=== PATIENT | male | born 1955 | race Two or more races ===

== ENCOUNTER 2022-09-18 10:24 | Outpatient (CLI) | payer MEDICARE, OTHER | END 2022-09-18 23:59 | disposition home or self-care (01) | LOC: RAD 10:24 | PROVIDERS: ATTEND Internal Medicine | DX: M16.0 Bilateral primary osteoarthritis of hip (principal); M25.852 Other specified joint disorders, left hip; M25.551 Pain in right hip; M25.552 Pain in left hip; M25.752 Osteophyte, left hip | CPT/HCPCS: 73521 ==

== ENCOUNTER 2022-10-17 09:27 | Outpatient (CLI) | payer MEDICARE, OTHER ==
[2022-10-17 10:26] LABS: APPEARANCE,URINE CLEAR (CLEAR); BILIRUBIN,URINE NEGATIVE (NEGATIVE); BLOOD, URINE NEGATIVE Ery/uL (NEGATIVE); COLOR,URINE YELLOW (YELLOW); KETONES,URINE NEGATIVE (NEGATIVE); LEUKOCYTE ESTERASE ,URINE NEGATIVE (NEGATIVE); NITRITE, URINE NEGATIVE (NEGATIVE); PH,URINE 5.5 (5.0-8.0); PROTEIN,URINE NEGATIVE (NEGATIVE); UGLUCOSE NEGATIVE (NEGATIVE); UROBILINOGEN,URINE 0.2 EU/dL (0.2)
[2022-10-17 10:29] LABS: BASOPHILS % (AUTO) 0.6 % (0.0-2.0); EOSINOPHILS # (AUTO) 0.1 K/uL (0.0-0.7); HEMATOCRIT 35 % (39-51); LYMPHOCYTES # (AUTO) 1.6 K/uL (0.8-4.8); LYMPHOCYTES % (AUTO) 26.8 % (20.0-44.0); MEAN CORPUSCULAR HEMOGLOBIN 31 PG (26.0-33.0); MEAN CORPUSCULAR HGB CONC 35 g/dl (31.0-36.0); MEAN CORPUSCULAR VOLUME 90 fL (80-96); MONOCYTES # (AUTO) 0.5 K/uL (0.1-1.30); MONOCYTES % (AUTO) 7.7 % (2.0-12.0); NEUTROPHILS # (AUTO) 3.8 K/uL (1.8-8.9); NEUTROPHILS % (AUTO) 63.9 % (43.0-81.0); PLATELET COUNT (AUTO) 280 K/uL (150-450); RED BLOOD CELL COUNT(AUTO) 3.87 MIL/uL (4.5-6.0); RED CELL DISTRIBUTION WIDTH 12.5 % (11.5-15.0)
[2022-10-17 10:36] LABS: INR 0.98 (0.91-1.10); PARTIAL THROMBOPLASTIN TIME 26.5 SEC (24.3-34.3); PROTHROMBIN TIME 10.3 SECS (9.2-11.1)
[2022-10-17 10:49] LABS: ALBUMIN 3.9 g/dL (3.4-5.0); BILIRUBIN,TOTAL 0.7 mg/dL (0.2-1.0); CALCIUM, SERUM 9.4 mg/dL (8.5-10.1); CREATININE 0.9 mg/dL (0.6-1.3)
[2022-11-02] MEDS ORDERED: HYDR-3980 PO (14:11)
[2022-11-02] MEDS ORDERED: Hydrocodone/Apap 5/325MG PO (14:11)
== END 2022-10-17 23:59 | disposition home or self-care (01) ==
LOC: LAB 09:27
PROVIDERS: ATTEND Internal Medicine
DX: Z01.818 Encounter for other preprocedural examination (principal); E11.9 Type 2 diabetes mellitus without complications
CPT/HCPCS: 36415; 71045-TC; 80053-TC; 85025-TC; 85730-TC

== ENCOUNTER 2022-10-22 10:13 | Outpatient (CLI) | payer MEDICARE, OTHER | END 2022-10-22 23:59 | disposition home or self-care (01) | LOC: MSC 10:13 | PROVIDERS: ATTEND Internal Medicine | DX: Z01.818 Encounter for other preprocedural examination (principal); M16.9 Osteoarthritis of hip, unspecified; Z87.39 Personal history of other diseases of the musculoskeletal system and connective tissue; I10 Essential (primary) hypertension; M54.30 Sciatica, unspecified side; Z79.891 Long term (current) use of opiate analgesic; E11.9 Type 2 diabetes mellitus without complications; Z79.84 Long term (current) use of oral hypoglycemic drugs; E78.5 Hyperlipidemia, unspecified; F41.9 Anxiety disorder, unspecified; Z79.899 Other long term (current) drug therapy ==

== ENCOUNTER 2022-10-30 14:40 | Inpatient (IN) | payer MEDICARE, OTHER ==
[~2022-10-30] VITALS: Ht 167.6 cm; Wt 80.3 kg
[2022-10-30] MEDS ORDERED: METF-440 PO (15:31)
[2022-10-30] MEDS ORDERED: OMEP40CA21 PO (15:31)
[2022-10-30] MEDS ORDERED: HYDR-3980 PO (15:31)
[2022-10-30] MEDS ORDERED: IBUP-1955 PO (15:31)
[2022-10-30] MEDS ORDERED: ALPR0.255 PO (15:31)
[2022-10-30] MEDS ORDERED: CARI350T27 PO (15:31)
[2022-10-30] MEDS ORDERED: CELE200C PO (15:31)
[2022-10-30] MEDS ORDERED: ONDA4TAB5 PO (15:31)
[2022-10-30] MEDS ORDERED: LOSA25TA27 PO (15:31)
[2022-10-30] MEDS ORDERED: MORPHINE SULFATE INJ 4 MG/ML DISP.SYRIN ONE (16:59)
[2022-10-30] MEDS ORDERED: MORPHINE SULFATE INJ 2 MG/ML DISP.SYRIN IV ONE (17:00)
[2022-10-30 17:02] LABS: BASOPHILS % (AUTO) 0.3 % (0.0-2.0); EOSINOPHILS # (AUTO) 0.1 K/uL (0.0-0.7); EOSINOPHILS % (AUTO) 1.6 % (0.0-6.0); HEMATOCRIT 31 % (39-51); HEMOGLOBIN 10.3 g/dL (13.5-17.5); LYMPHOCYTES # (AUTO) 1.3 K/uL (0.8-4.8); LYMPHOCYTES % (AUTO) 15.3 % (20.0-44.0); MEAN CORPUSCULAR HEMOGLOBIN 31 PG (26.0-33.0); MEAN CORPUSCULAR HGB CONC 33 g/dl (31.0-36.0); MEAN CORPUSCULAR VOLUME 92 fL (80-96); MONOCYTES # (AUTO) 1.1 K/uL (0.1-1.30); MONOCYTES % (AUTO) 12.9 % (2.0-12.0); NEUTROPHILS # (AUTO) 5.8 K/uL (1.8-8.9); NEUTROPHILS % (AUTO) 69.9 % (43.0-81.0); PLATELET COUNT (AUTO) 233 K/uL (150-450); RED BLOOD CELL COUNT(AUTO) 3.35 MIL/uL (4.5-6.0); RED CELL DISTRIBUTION WIDTH 12.4 % (11.5-15.0); WHITE BLOOD COUNT (AUTO) 8.3 K/uL (4.3-11.0)
[2022-10-30 17:14] LABS: INR 0.99 (0.91-1.10); PARTIAL THROMBOPLASTIN TIME 28.9 SEC (24.3-34.3); PROTHROMBIN TIME 10.4 SECS (9.2-11.1)
[2022-10-30 17:39] LABS: POTASSIUM 3.7 mmol/L (3.5-5.1)
[2022-10-30 17:52] LABS: CALCIUM, SERUM 8.8 mg/dL (8.5-10.1)
[2022-10-30 18:20] VITALS: BP 128/74; TEMP 98.8; O2SAT 97
[2022-10-30] MEDS ORDERED: Medication Not On Formulary EA (Ondansetron Hcl (Zofran) 4 MG) PO PRN (19:00)
[2022-10-30] MEDS ORDERED: Z GUARD REMEDY 4 OZ OINT TP PRN (19:00)
[2022-10-30] MEDS ORDERED: KETOROLAC TROMETHAMINE INJ 30 MG/ML VIAL IM PRN (19:00)
[2022-10-30] MEDS ORDERED: CARISOPRODOL 350 MG TABLET PO PRN (19:00)
[2022-10-30] MEDS ORDERED: ONDANSETRON HCL/PF 4 MG/2 ML VIAL IVP PRN (19:00)
[2022-10-30] MEDS ORDERED: ALPRAZOLAM 0.25 MG TABLET PO PRN (19:00)
[2022-10-30] MEDS ORDERED: ACETAMINOPHEN 325 MG TABLET PO PRN (19:00)
[2022-10-30] MEDS ORDERED: MAGNESIUM HYDROXIDE 30 ML UDC PO PRN (19:00)
[2022-10-30] MEDS ORDERED: MAG HYDROX/AL HYDROX/SIMETH 30 ML UDC PO PRN (19:00)
[2022-10-30] MEDS ORDERED: IBUPROFEN 600 MG TABLET PO PRN (19:00)
[2022-10-30] MEDS ORDERED: CELECOXIB 100 MG CAPSULE PO PRN (19:30)
[2022-10-30] MEDS ORDERED: DEXTROSE 50%-WATER 50 ML DISP.SYRIN IV PRN (19:30)
[2022-10-30] MEDS: ENOXAPARIN SODIUM 40 MG/0.4 ML DISP.SYRIN SQ SCH (19:58)
[2022-10-30 20:00] VITALS: BP 129/76; TEMP 98.6; O2SAT 97
[2022-10-30] MEDS: HYDROCODONE/APAP 10/325MG TABLET PO PRN (20:06)
[2022-10-30] MEDS: BLOOD SUGAR DIAGNOSTIC 1 EACH STRIP VI SCH (22:01)
[2022-10-30] MEDS: *INSULIN REGULAR(HUMULIN R)HUM 100 UNIT/ML VIAL SQ PRN (22:01)
[2022-10-31] MEDS: MORPHINE SULFATE INJ 2 MG/ML DISP.SYRIN IV PRN (02:53)
[2022-10-31 06:26] LABS: BASOPHILS % (AUTO) 0.5 % (0.0-2.0); EOSINOPHILS # (AUTO) 0.3 K/uL (0.0-0.7); EOSINOPHILS % (AUTO) 4.3 % (0.0-6.0); HEMATOCRIT 28 % (39-51); HEMOGLOBIN 9.4 g/dL (13.5-17.5); LYMPHOCYTES # (AUTO) 1.6 K/uL (0.8-4.8); LYMPHOCYTES % (AUTO) 23.7 % (20.0-44.0); MEAN CORPUSCULAR HEMOGLOBIN 31 PG (26.0-33.0); MEAN CORPUSCULAR HGB CONC 33 g/dl (31.0-36.0); MEAN CORPUSCULAR VOLUME 93 fL (80-96); MONOCYTES # (AUTO) 0.7 K/uL (0.1-1.30); MONOCYTES % (AUTO) 10.5 % (2.0-12.0); NEUTROPHILS # (AUTO) 4.2 K/uL (1.8-8.9); PLATELET COUNT (AUTO) 207 K/uL (150-450); RED BLOOD CELL COUNT(AUTO) 3.04 MIL/uL (4.5-6.0); RED CELL DISTRIBUTION WIDTH 12.3 % (11.5-15.0); WHITE BLOOD COUNT (AUTO) 6.9 K/uL (4.3-11.0)
[2022-10-31] MEDS: BLOOD SUGAR DIAGNOSTIC 1 EACH STRIP VI SCH ×4 (06:32→21:29)
[2022-10-31] MEDS: INSULIN REGULAR, HUMAN 100 UNIT/ML 3 ML VIAL SQ PRN ×2 (06:32→12:03)
[2022-10-31 07:03] LABS: CALCIUM, SERUM 8.6 mg/dL (8.5-10.1); CREATININE 1.1 mg/dL (0.6-1.3); MAGNESIUM 2.1 mg/dL (1.8-2.4); PHOSPHORUS 4.2 mg/dL (2.5-4.9); POTASSIUM 3.9 mmol/L (3.5-5.1)
[2022-10-31] MEDS: LOSARTAN POTASSIUM 25 MG TABLET PO SCH (08:28)
[2022-10-31] MEDS: PANTOPRAZOLE 40 MG TABLET.DR PO SCH (08:28)
[2022-10-31 09:00] VITALS: BP 125/74; TEMP 98.2; O2SAT 97
[2022-10-31] MEDS ORDERED: HYDROCODONE/APAP 10/325MG TABLET PO SCH (09:00)
[2022-10-31] MEDS: HYDROCODONE/APAP 10/325MG TABLET PO PRN (11:53)
[2022-10-31 16:00] VITALS: BP 129/79; TEMP 98.2; O2SAT 96
[2022-10-31] MEDS: METFORMIN 500 MG TABLET PO SCH (17:33)
[2022-10-31] MEDS: ENOXAPARIN SODIUM 40 MG/0.4 ML DISP.SYRIN SQ SCH (18:40)
[2022-10-31 19:00] VITALS: BP 130/83; TEMP 98.1; O2SAT 96
[2022-10-31 20:00] VITALS: BP 130/83; TEMP 98.1; O2SAT 96
[2022-10-31] MEDS: *INSULIN REGULAR(HUMULIN R)HUM 100 UNIT/ML VIAL SQ PRN (21:29)
[2022-10-31] MEDS: HYDROCODONE/APAP 5/325MG TABLET PO PRN (21:51)
[2022-11-01 01:25] VITALS: BP 129/70
[2022-11-01] MEDS: ZOLPIDEM TARTRATE 5 MG TABLET PO PRN ×2 (01:31→23:33)
[2022-11-01] MEDS: BLOOD SUGAR DIAGNOSTIC 1 EACH STRIP VI SCH ×4 (06:35→22:21)
[2022-11-01] MEDS: INSULIN REGULAR, HUMAN 100 UNIT/ML 3 ML VIAL SQ PRN ×3 (06:35→17:10)
[2022-11-01 07:33] LABS: BASOPHILS % (AUTO) 0.4 % (0.0-2.0); EOSINOPHILS # (AUTO) 0.4 K/uL (0.0-0.7); EOSINOPHILS % (AUTO) 4.7 % (0.0-6.0); HEMATOCRIT 28 % (39-51); HEMOGLOBIN 9.3 g/dL (13.5-17.5); LYMPHOCYTES # (AUTO) 1.5 K/uL (0.8-4.8); LYMPHOCYTES % (AUTO) 20.4 % (20.0-44.0); MEAN CORPUSCULAR HEMOGLOBIN 31 PG (26.0-33.0); MEAN CORPUSCULAR HGB CONC 33 g/dl (31.0-36.0); MEAN CORPUSCULAR VOLUME 92 fL (80-96); MONOCYTES # (AUTO) 0.6 K/uL (0.1-1.30); MONOCYTES % (AUTO) 8.6 % (2.0-12.0); NEUTROPHILS # (AUTO) 4.9 K/uL (1.8-8.9); NEUTROPHILS % (AUTO) 65.9 % (43.0-81.0); PLATELET COUNT (AUTO) 251 K/uL (150-450); RED BLOOD CELL COUNT(AUTO) 3.03 MIL/uL (4.5-6.0); RED CELL DISTRIBUTION WIDTH 12.2 % (11.5-15.0); WHITE BLOOD COUNT (AUTO) 7.5 K/uL (4.3-11.0)
[2022-11-01 07:50] LABS: CALCIUM, SERUM 8.7 mg/dL (8.5-10.1); CREATININE 0.9 mg/dL (0.6-1.3); MAGNESIUM 2.1 mg/dL (1.8-2.4); PHOSPHORUS 4.2 mg/dL (2.5-4.9); POTASSIUM 3.6 mmol/L (3.5-5.1)
[2022-11-01 08:00] VITALS: BP 137/79; TEMP 98.6; O2SAT 97
[2022-11-01] MEDS: PANTOPRAZOLE 40 MG TABLET.DR PO SCH (08:20)
[2022-11-01] MEDS: LOSARTAN POTASSIUM 25 MG TABLET PO SCH (08:21)
[2022-11-01] MEDS: MORPHINE SULFATE INJ 2 MG/ML DISP.SYRIN IV PRN ×2 (08:22→17:13)
[2022-11-01 16:00] VITALS: BP 136/82; TEMP 98.3; O2SAT 97
[2022-11-01] MEDS: METFORMIN 500 MG TABLET PO SCH (17:09)
[2022-11-01] MEDS: ENOXAPARIN SODIUM 40 MG/0.4 ML DISP.SYRIN SQ SCH (18:24)
[2022-11-01 20:00] VITALS: BP 126/73; TEMP 98.2; O2SAT 96
[2022-11-01] MEDS: *INSULIN REGULAR(HUMULIN R)HUM 100 UNIT/ML VIAL SQ PRN (22:21)
[2022-11-02] MEDS: HYDROCODONE/APAP 5/325MG TABLET PO PRN (05:36)
[2022-11-02] MEDS: INSULIN REGULAR, HUMAN 100 UNIT/ML 3 ML VIAL SQ PRN ×2 (06:32→12:39)
[2022-11-02] MEDS: BLOOD SUGAR DIAGNOSTIC 1 EACH STRIP VI SCH ×2 (06:32→12:36)
[2022-11-02 06:33] LABS: BASOPHILS % (AUTO) 0.5 % (0.0-2.0); EOSINOPHILS # (AUTO) 0.4 K/uL (0.0-0.7); EOSINOPHILS % (AUTO) 5.8 % (0.0-6.0); HEMATOCRIT 29 % (39-51); HEMOGLOBIN 9.9 g/dL (13.5-17.5); LYMPHOCYTES # (AUTO) 1.6 K/uL (0.8-4.8); LYMPHOCYTES % (AUTO) 25.7 % (20.0-44.0); MEAN CORPUSCULAR HEMOGLOBIN 31 PG (26.0-33.0); MEAN CORPUSCULAR HGB CONC 34 g/dl (31.0-36.0); MEAN CORPUSCULAR VOLUME 91 fL (80-96); MONOCYTES # (AUTO) 0.6 K/uL (0.1-1.30); MONOCYTES % (AUTO) 9.5 % (2.0-12.0); NEUTROPHILS # (AUTO) 3.6 K/uL (1.8-8.9); NEUTROPHILS % (AUTO) 58.5 % (43.0-81.0); PLATELET COUNT (AUTO) 288 K/uL (150-450); RED BLOOD CELL COUNT(AUTO) 3.23 MIL/uL (4.5-6.0); RED CELL DISTRIBUTION WIDTH 12.2 % (11.5-15.0); WHITE BLOOD COUNT (AUTO) 6.1 K/uL (4.3-11.0)
[2022-11-02 06:51] LABS: CALCIUM, SERUM 9.1 mg/dL (8.5-10.1); MAGNESIUM 2.3 mg/dL (1.8-2.4); POTASSIUM 3.6 mmol/L (3.5-5.1)
[2022-11-02 08:00] VITALS: BP 135/80; TEMP 97.7; O2SAT 96
[2022-11-02 08:21] VITALS: BP 135/80
[2022-11-02] MEDS: PANTOPRAZOLE 40 MG TABLET.DR PO SCH (08:21)
[2022-11-02] MEDS: LOSARTAN POTASSIUM 25 MG TABLET PO SCH (08:21)
[2022-11-02] MEDS ORDERED: HYDR-3980 PO (14:11)
[2022-11-02] MEDS ORDERED: Hydrocodone/Apap 5/325MG PO (14:11)
[2022-11-02] MEDS ORDERED: DOCUSATE SODIUM 100 MG CAPSULE PO SCH (17:00)
== END 2022-11-02 16:30 | DRG 948 ==
LOC: ER 14:47 → MED 16:42
PROVIDERS: ADMIT Student in an Organized Health Care Education/Training Program; ATTEND Student in an Organized Health Care Education/Training Program
DX: G89.18 Other acute postprocedural pain (principal); E11.9 Type 2 diabetes mellitus without complications; I10 Essential (primary) hypertension; Z79.84 Long term (current) use of oral hypoglycemic drugs; Z79.899 Other long term (current) drug therapy; Z96.641 Presence of right artificial hip joint; D64.9 Anemia, unspecified
CPT/HCPCS: 36415; 73502; 80048-TC; 82962-TC; 83735-TC; 84100-TC; 85025-TC; 85730-TC; 87081-TC; 97110-TC; 97112-TC; 97116-TC; G0378; J1650; J1815; J2270

== ENCOUNTER 2025-02-13 09:09 | Outpatient (CLI) | payer MEDICARE, OTHER ==
[~2025-02-13 09:09] MED LIST: ALPR0.255 PO; CARI350T27 PO; CELE200C PO; HYDR-3980 PO; Hydrocodone/Apap 5/325MG PO; IBUP-1955 PO; LOSA25TA27 PO; METF-440 PO; OMEP40CA21 PO; ONDA4TAB5 PO
[2025-02-13 10:42] LABS: PLATELET COUNT (AUTO) 276 K/uL (150-450); RED BLOOD CELL COUNT(AUTO) 4.27 MIL/uL (4.5-6.0); RED CELL DISTRIBUTION WIDTH 12.8 % (11.5-15.0); WHITE BLOOD COUNT (AUTO) 6.1 K/uL (4.3-11.0)
[2025-02-13 10:46] LABS: LDL 168.0 mg/dL (0-99)
[2025-02-13 10:50] LABS: ASPARTATE AMINOTRANSFERASE 23.0 U/L (15-37); CALCIUM, SERUM 8.7 mg/dL (8.5-10.1); CREATININE 1.0 mg/dL (0.6-1.3); PHOSPHORUS 3.0 mg/dL (2.5-4.9); SODIUM SERUM 143.0 mmol/L (136-145); TOTAL PROTEIN, SERUM 7.9 g/dL (6.4-8.2); UREA NITROGEN, BLOOD 11.0 mg/dL (7-18)
[2025-02-13 11:44] LABS: ERYTHROCYTE SEDIMENTATION RATE 27 MM/HR (0-20)
== END 2025-02-13 23:59 | disposition home or self-care (01) ==
LOC: LAB 09:09
PROVIDERS: ATTEND Internal Medicine
DX: M19.012 Primary osteoarthritis, left shoulder (principal); I10 Essential (primary) hypertension; E11.9 Type 2 diabetes mellitus without complications; J44.9 Chronic obstructive pulmonary disease, unspecified; R13.10 Dysphagia, unspecified
CPT/HCPCS: 36415; 73030-TC; 80053-TC; 80061-TC; 83735-TC; 84100-TC; 85025-TC; 85652-TC; 86140-TC